=== PATIENT | female | born 1940 ===

== ENCOUNTER 2017-06-23 09:04 | Observation (INO) | payer MEDICARE, MEDICAID ==
[2017-06-23 10:01] LABS: Hematocrit 20 % (35-47); Hemoglobin 6.5 g/dl (12.0-16.0); Mean Corpuscular HGB Conc 32 g/dl (31-36); Mean Corpuscular Hemoglobin 22 pg (27-31); Mean Corpuscular Volume 68 fL (80-97); Mean Platelet Volume 9 um3 (7.4-10.4); Red Blood Count 2.99 10^6/ul (4.0-5.4); Red Cell Distribution Width 17 % (10.5-15); White Blood Count 7.4 10^3/ul (3.5-10.8)
[2017-06-23 10:06] LABS: Comments Flag Yes
[2017-06-23 10:07] LABS: Add Diff/Slide Review? Slide Review Added
[2017-06-23 10:11] LABS: BUN/Creatinine Ratio 17.2 (8-20); C Reactive Protein 3.93 mg/L (< 5.00); Calcium 8.1 mg/dL (8.6-10.3); EGFR African American 7.2 (>60); EGFR Non-African American 5.6 (>60); Globulin 3.3 g/dL (2-4); Magnesium 1.7 mg/dL (1.9-2.7); Total Bilirubin 0.3 mg/dL (0.2-1.0); Total Protein 6.3 g/dL (6.4-8.9)
[2017-06-23 10:12] LABS: Potassium 5.2 mmol/L (3.5-5.0)
[2017-06-23] MEDS ORDERED: NS 0.9% 1000 ML* 2,000 ML IV ONE (10:14)
[2017-06-23 10:38] LABS: Add Path Review? YES; Hypochromasia 2+; Microcytosis 2+; Target Cells 1+
--- NOTE | 2017-06-23 10:38 | RAD ---
INDICATION: Short of breath COMPARISON: None TECHNIQUE: An AP portable view obtained at 1005 hours is submitted. FINDINGS: Bones/Soft Tissues: There are no acute bony findings. Cardiomediastinal: The cardiomediastinal silhouette is normal. Lungs: There are no infiltrates. Pleura: There are no pleural effusions. Other: None IMPRESSION: NO ACTIVE DISEASE.
[2017-06-23 10:39] LABS: Polychromasia 1+
[2017-06-23] MEDS ORDERED: Magnesium Sulfate 1 GM IV* 1 GM/100 ML BAG IV ONE (11:54)
[2017-06-23] MEDS ORDERED: Ondansetron INJ* 2 MG/ML VIAL IV PRN (12:15)
[2017-06-23] MEDS ORDERED: Acetaminophen TAB* 325 MG PO PRN (12:15)
[2017-06-23] MEDS ORDERED: LORazepam INJ* 2 MG/ML 1 ML VIAL IV PUSH PRN (12:49)
[2017-06-23] MEDS ORDERED: Morphine INJ* 2 MG/ML 1 ML SYRINGE (TWO MG - NEW SYRINGE VERSION) IV PRN (12:49)
--- NOTE | 2017-06-23 14:14 | CONSULT ---
Palliative / Hospice Consult Ordering Provider: Steph Jacome - Subjective Code Status: Full Code Advance Directives Location: No Advance Directives MOLST Part A Completed: Yes - DNR MOLST Part E Completed:: Yes - DNI, DNH, no feeding tube HCP Completed: Yes - Daughter Jaxon Macias - History or Present Illness History or Present Illness: The patient is a 77 year old [place] immigrant who came to this country in 1984, and has had her 6 children join her at various times since then. SHe was in 2007 when her of liver failure. The patient has had renal failure for many years, but has refused dialysis. She has been under the care of Dr. Leong. In March she was seen by her PCP and was anemic, and was transfused 2 u PRBCs at that time. Her daughters report that since then, she has had worsening edema in her feet, and now has developed generalized nonpitting edema in her UEs and face. She presented to her PCP yesterday for worsening edema and fatigue and was found to have severe anemia, with H/H of 6.5 /20, and Dr. Leong referred her to the ER here. Her wbc is 7.4. She has had no evidence of any bleeding, GI or otherwise. Her BNP is 2171, albumin is 3.0, lipase 87 and her creatinine is 7.04 with BUN 121. Her family reports that her appetite has been flagging but she still drinks a lot of fluid. She lives in the home of her daughter Jaxon, whom she names today as her HCP, and also Jaxon's and 2 grandchildren. Lab Values: Laboratory Last Values WBC 7.4 10^3/ul (3.5-10.8) 06/23/17 09:25 RBC 2.99 10^6/ul (4.0-5.4) L 06/23/17 09:25 Hgb 6.5 g/dl (12.0-16.0) L 06/23/17 09:25 Hct 20 % (35-47) L 06/23/17 09:25 MCV 68 fL (80-97) L 06/23/17 09:25 MCH 22 pg (27-31) L 06/23/17 09:25 MCHC 32 g/dl (31-36) 06/23/17 09:25 RDW 17 % (10.5-15) H 06/23/17 09:25 Plt Count 226 10^3/ul (150-450) 06/23/17 09:25 MPV 9 um3 (7.4-10.4) 06/23/17 09:25 Neut % (Auto) 76.2 % (38-83) 06/23/17 09:25 Lymph % (Auto) 11.6 % (25-47) L 06/23/17 09:25 [place] % (Auto) 7.4 % (1-9) 06/23/17 09:25 Eos % (Auto) 3.6 % (0-6) 06/23/17 09:25 Baso % (Auto) 1.2 % (0-2) 06/23/17 09:25 Absolute Neuts (auto) 5.7 10^3/ul (1.5-7.7) 06/23/17 09:25 Absolute Lymphs (auto) 0.9 10^3/ul (1.0-4.8) L 06/23/17 09:25 Absolute Monos (auto) 0.6 10^3/ul (0-0.8) 06/23/17 09:25 Absolute Eos (auto) 0.3 10^3/ul (0-0.6) 06/23/17 09:25 Absolute Basos (auto) 0.1 10^3/ul (0-0.2) 06/23/17 09:25 Absolute Nucleated RBC 0.02 10^3/ul 06/23/17 09:25 Nucleated RBC % 0.2 06/23/17 09:25 Normal RBC Morphology Not Reportable 06/23/17 09:25 Polychromasia 1+ 06/23/17 09:25 Hypochromasia 2+ 06/23/17 09:25 Microcytosis 2+ 06/23/17 09:25 Target Cells 1+ 06/23/17 09:25 Sodium 136 mmol/L (133-145) 06/23/17 09:25 Potassium 5.2 mmol/L (3.5-5.0) H 06/23/17 09:25 Chloride 107 mmol/L (101-111) 06/23/17 09:25 Carbon Dioxide 17 mmol/L (22-32) L 06/23/17 09:25 Anion Gap 12 mmol/L (2-11) H 06/23/17 09:25 BUN 121 mg/dL (6-24) H 06/23/17 09:25 Creatinine 7.04 mg/dL (0.51-0.95) H 06/23/17 09:25 Est GFR ( Amer) 7.2 (>60) 06/23/17 09:25 Est GFR (Non-Af Amer) 5.6 (>60) 06/23/17 09:25 BUN/Creatinine Ratio 17.2 (8-20) 06/23/17 09:25 Glucose 96 mg/dL (70-100) 06/23/17 09:25 Calcium 8.1 mg/dL (8.6-10.3) L 06/23/17 09:25 Magnesium 1.7 mg/dL (1.9-2.7) L 06/23/17 09:25 Total Bilirubin 0.30 mg/dL (0.2-1.0) 06/23/17 09:25 AST 12 U/L (13-39) L 06/23/17 09:25 ALT 8 U/L (7-52) 06/23/17 09:25 Alkaline Phosphatase 93 U/L (34-104) 06/23/17 09:25 C-Reactive Protein 3.93 mg/L (< 5.00) 06/23/17 09:25 B-Natriuretic Peptide 2171 pg/mL (-100) H 06/23/17 09:25 Total Protein 6.3 g/dL (6.4-8.9) L 06/23/17 09:25 Albumin 3.0 g/dL (3.2-5.2) L 06/23/17 09:25 Globulin 3.3 g/dL (2-4) 06/23/17 09:25 Albumin/Globulin Ratio 0.9 (1-3) L 06/23/17 09:25 Lipase 87 U/L (11.0-82.0) H 06/23/17 09:25 Blood Type A Positive 06/23/17 09:25 Antibody Screen Negative 06/23/17 09:25 Crossmatch See Detail 06/23/17:25 - Objective Active Medications: Acetaminophen (Tylenol Tab*) 650 mg PO Q4H PRN PRN Reason: FEVER/PAIN Amlodipine Besylate (Norvasc Tab*) 5 mg PO QAM VIVEK Atenolol (Tenormin Tab*) 25 mg PO DAILY VIVEK Atorvastatin Calcium (Lipitor*) 20 mg PO DAILY VIVEK Citric Acid/Sodium Citrate (Bicitra*) 15 ml PO TID VIVEK Lorazepam (Ativan Inj*) 0.5 mg IV PUSH Q4H PRN PRN Reason: ANXIETY Morphine Sulfate (Morphine Inj (Syringe)*) 2 mg IV Q4H PRN PRN Reason: PAIN Multivitamins/Minerals (Preservision Areds(Multivitamins/Mineral)(Nf)) 1 cap PO QAM VIVEK Omeprazole (Prilosec Cap*) 20 mg PO QAM@0730 VIVEK Ondansetron HCl (Zofran Inj*) 4 mg IV Q6H PRN PRN Reason: NAUSEA Vital Signs: Vital Signs: Temp Pulse Resp BP Pulse Ox 98 F 52 16 165/44 100 06/23/17 11:47 06/23/17 11:47 06/23/17 11:47 06/23/17 11:47 06/23/17 11:47 Intake and Output: Intake & Output 06/21/17 06/22/17 06/23/17 06/24/17 06:59 06:59 06:59 06:59 Intake Total 232 Balance 232 Intake: IV Fluids 232 NS (0.9%) 232 ADLs: Meal Record Start: 06/23/17 11: 47 Freq: DAILY@0900,1400,1800 Status: Active Created 06/23/17 11:47 System (Rec: 06/23/17 11:47 System [id number]) Intake and Output Start: 06/23/17 09: 09 Freq: Status: Active Created 06/23/17 09:09 System (Rec: 06/23/17 09:09 System [id number]) Intake and Output Start: 06/23/17 11: 47 Freq: DAILY@0600,1400,2200 Status: Active Created 06/23/17 11:47 System (Rec: 06/23/17 11:47 System [id number]) Head: Symmetrical - periorbital edema Eyes: No Scleral Icterus Ears/Nose/Mouth/Throat: Clear Oropharnyx Neck: Trachea Midline Cardiovascular: RRR Respiratory: Symmetrical Chest Expansion and Respiratory Effort Abdominal: NL Sounds; No Tenderness; No Distention - Anasarca Extremities: - - Diffuse nonpitting edema Neurological: Alert and Oriented x 3, - - Speaks [place] only and interacts with family alertly - Assessment Assessment: This 77 year old woman has end-stage renal failure and severe anemia, probably on the basis of her renal failure. She is here about to obtain transfusion of 2 u PRBCs which should be done slowly because of her fluid overload and her very elevated BNP. I spoke with her family at length about this patient's end-stage disease. They understand there is no recourse, and we discussed options for care. They all agreed on naming Ath, the daughter her mother lives with, as the HCP, and also opted to be able to keep the patient comfortable at home with comfort measures only. I would suggest getting a hospital bed in the home prior to her discharge there, and the family is eager to have the patient sign on to hospice services [facility]. She certainly meets criteria for hospice services with a primary diagnosis of end-stage renal disease and a secondary diagnosis of anemia of chronic disease. Although we will not cover further blood tranfusions , we have in the past covered erythropoietin for such patients, if it might be helpful and relieve her symptoms of fluid overload. I spoke with her attending Dr. Leong, and he agrees to refer the patient to hospice services. I expect she will not survive more than a month. Thanks for asking me to consult. - Plan Consult Plan (MU): Hospice - Time On Unit Date of Evaluation: 06/23/17 Hospice Consult Time in: 13:15 Hospice Consult Time Out: 14:30 Hospice Consult Time Total: 75 > 50% of Time Spend In Counseling or Coordinating Care: Yes
--- NOTE | 2017-06-23 14:46 | HP ---
HISTORY AND PHYSICAL: ADDENDUM: Ms. Macias is a 77-year-old female with history of chronic kidney disease stage 4 and micro cytic anemia with hemoglobin reported by Dr. Ramon in February/March 2017 of just a little bit above 6. Patient presented to the hospital with complaints of anemia and hypertension. She was noted to have a hemoglobin of 6.5 and creatinine of 7.04. She is going to be admitted with a diagnosis of acute renal failure and microcytic anemia. Dr. Ureña will see the patient in consultation. Up to that p oint, it appears that the patient was notified about her renal failure and the possibility of hemodi alysis was discussed and until today patient had been refusing. Today, she is unsure. Once again, Dr. Ureña will see the patient in consultation to discuss possibility of hemodialysis with the kathryn ent soon. For further details of patient's admission plan, please see history and physical dictated by Steph Jacome, on 06/23/17, with which I agree. [id number]/[facility] #: [id number]
--- NOTE | 2017-06-23 14:46 | HP ---
CC: Dr. Leong; Dr. Valentino Hidalgo; Dr. Ureña* HISTORY AND PHYSICAL: DATE OF ADMISSION: 06/23/17 PROVIDER: Leslye Jc NP ATTENDING PHYSICIAN: Dr. Ximena Canseco* (as dictated by Leslye Jc NP) CONSULTING PHYSICIAN: Dr. Martin Ureña. PRIMARY CARE PROVIDER: Dr. Valentino Hidalgo. CHIEF COMPLAINT: Sent by PCP for anemia. HISTORY OF PRESENT ILLNESS: This is a 77-year-old female, who presents today for evaluation of anemia and acute on chronic renal disease. The patient speaks Greek and her daughter was translating per the patient and family wishes. Per the daughter, the patient was coming in for routine checkup and routine labs a few days ago. She was called today and was referred to the ER for further evaluation after it was reported that the patient's hemoglobin and hematocrit were low. At home, the patient reportedly was roughly within her baseline though she has been more dyspneic with exertion recently. The patient does live with her daughter, but per the daughter, is independent with her ADLs except for when she is extremely fatigued or ill. Her daughter does state that she does get dyspneic with exertion. She has noted that recently she has been more somnolent. However, she has not noticed any signs of bleeding. She has not noticed any blood in the toilet. The patient has also denied having any blood in urine or stool and denies tarry black stools. In regards to her weight and oral intake, daughter notes that the patient has had generalized edema that has worsened over the past few days. She states her mother drinks lot of water, her appetite has not changed, and she still is eating and drinking within her baseline. The patient also reports of generalized pain that appears to be secondary to the swelling. Of note, the patient in March [address] Ramon for diarrhea and dyspnea with exertion. At that time, it was noted that her hemoglobin was 6.2, hematocrit 20 at that time. It appears she was referred for transfusion which the patient refused admission to the hospital for it. She did have it done as an outpatient. Her daughter states that she had no further evaluation following that transfusion other than some iron studies done through [facility]. The patient declined any further workup. In regards to her renal function, the patient's creatinine at that time was noted to be 5.6. It appears that the patient had been seen by Dr. Ureña previously, but had declined dialysis. Again, the HPI and the rest of the examination were assisted by the patient's daughter, Ms. Jaxon Macias. PAST MEDICAL HISTORY: 1. Chronic kidney disease. 2. Hypertension. 3. Hyperlipidemia. 4. Osteoporosis. 5. Anemia. 6. GERD. 7. Osteoarthritis of the knee. 8. Positional vertigo. HOME MEDICATIONS: 1. Amlodipine 5 mg q.a.m. 2. Omeprazole 20 mg q.a.m. 3. Multivitamin 1 capsule daily. 4. Furosemide 40 mg b.i.d. 5. Atorvastatin 20 mg daily. 6. Atenolol 25 mg daily. 7. Aspirin 325 mg q.a.m. ALLERGIES: No known drug or food allergies. FAMILY HISTORY: Reviewed. Daughter denies any known history of heart rate, diabetes, or cancer, although she reports hepatitis B in her father who is now . SOCIAL HISTORY: The patient has never smoked, but does chew tobacco. She denies alcohol or drug use. She lives with her daughter. She is . She has 6 children, 3 daughters and 3 sons. REVIEW OF SYSTEMS: As per HPI. PHYSICAL EXAMINATION GENERAL: This is an elderly female who was lying in the ED stretcher. She does not appear to be in any acute distress. She does defer to her daughter, history was primarily provided by daughter. VITAL SIGNS: Temperature 97.3, heart rate 52, respiratory rate 14, blood pressure 141/53, and O2 saturation 98% on room air. HEENT: Head is atraumatic and normocephalic. Face is symmetrical. Pupils are equal, round, and reactive to light and accommodation. Extraocular movements are intact. Oral mucosa appears moist, there is no oropharyngeal erythema or exudate. NECK: Supple. No lymphadenopathy noted. No JVD noted. RESPIRATORY: Lungs are clear to auscultation bilaterally. There is no accessory muscle use. CARDIAC: S1 and S2 heart sounds. Regular rate and rhythm. No murmurs, rubs, or gallops. The patient has anasarca. Distal pulses are symmetric and present times all extremities. ABDOMEN: Soft, nontender, and nondistended. There was no rebound, tenderness, or guarding. Bowel sounds are normoactive. No hepatosplenomegaly. MUSCULOSKELETAL: The patient has full range of motion. There is no clubbing or cyanosis. EXTREMITIES: Again, there is generalized edema, but pitting edema in the upper and lower extremities. NEURO: The patient responds appropriately and is cooperative with exam. She moves all extremities. No acute neurological deficits. Sensation is intact to light touch. RECTAL: Deferred, the patient has declined. SKIN: Limited assessment, but is dry and warm and appears well perfused. No rashes or wounds noted. DIAGNOSTIC STUDIES/LAB DATA: CBC: WBC 7.4, hemoglobin 6.5, hematocrit 20, platelet count 226. CMP: Sodium 136, potassium 5.2, chloride 107, carbon dioxide 17, anion gap 12, BUN 121, creatinine 7.04, glucose 96, calcium 8.1, magnesium 1.7. Total bilirubin 0.3, AST 12, ALT 8, alk phos 73. CRP 3.93. BNP 2171. Albumin 3.0, lipase 87. EKG shows sinus bradycardia at a rate of 53. No significant ST elevations noted. Chest x-ray, impression: No active disease. Medical records were requested from the patient's primary care provider, no old medical records available or reviewed. ASSESSMENT AND PLAN: This is a 77-year-old, who presents today with anemia, acute on chronic renal failure. She will be admitted to the telemetry floor. Plans are as follows: 1. Anemia. The patient has microcytic anemia, likely iron deficient, and a combination of renal disease in addition to the iron deficiency. Iron studies have been requested. The patient has been ordered 2 units of blood here in the ER. She may benefit from erythropoietin injection, but the patient refuses dialysis. Otherwise, most of these treatments will be only palliative and temporary in their effect. For the anemia, we will obtain the iron studies as well as a stool occult. The patient again has refused at this time a rectal exam. I have requested the patient provide a stool sample as soon as possible and we will re-discuss apparently later the possibility of a rectal exam if she is willing. 2. Acute on chronic renal disease. This is the patient who has been seen by Dr. Ureña in the past and apparently has declined dialysis. I have discussed her case with Dr. Ureña, he has agreed to consult the patient here in the hospital. Again, we may need to consider a palliative approach as the patient continues to decline dialysis, as it appears her renal function and creatinine clearance have greatly declined since March. We will start her on Bicitra and obtain a VBG, the prognosis is guarded at this time. 3. Electrolyte abnormalities. I have ordered 1 g of magnesium to replete her mag. 4. History of hypertension. Continue amlodipine and atenolol with hold parameters. With the patient's generalized edema, she would benefit from diuresis, but given her renal function, I will defer to Dr. Ureña once he sees her to determine if we need to continue her furosemide. At this point in time, we will hold the furosemide. 5. Hyperlipidemia. Continue atorvastatin. 6. Osteoarthritis. Continue p.r.n. acetaminophen. 7. FEN. The patient will be on a renal diet. 8. Code status. She is temporarily at this time a full code per her family's wishes. 9. DVT prophylaxis. SCDS, given anemia and likelihood of acute bleed. 10. Disposition will be determined once the patient meets with Dr. Ureña and agrees upon dialysis. If the patient continues to decline dialysis, I have already asked for Palliative Care consult, but the patient can consider both options at this point in time. TIME SPENT: Greater than 60 minutes was spent on this history and physical which includes [id number] time, review of plan of care with family, and chart review. I have also reviewed this case with my attending, Dr. Canseco, who is in agreement. LESLYE JC NP ADDENDUM TO HISTORY AND PHYSICAL: Ms. Macias is a 77-year-old female with history of chronic kidney disease stage 4 and microcytic anemia with hemoglobin reported by Dr. Ramon in February/March 2017 of just a little bit above 6. Patient presented to the hospital with complaints of anemia and hypertension. She was noted to have a hemoglobin of 6.5 and creatinine of 7.04. She is going to be admitted with a diagnosis of acute renal failure and microcytic anemia. Dr. Ureña will see the patient in consultation. Up to that point, it appears that the patient was notified about her renal failure and the possibility of hemodialysis was discussed and until today patient had been refusing. Today, she is unsure. Once again, Dr. Ureña will see the patient in consultation to discuss possibility of hemodialysis with the patient soon. For further details of patient's admission plan, please see history and physical dictated by Leslye Jc, on 06/23/17, with which I agree. Ximena Canseco MD [id number]/[facility] #: [id number]/[facility] #: [id number] JU
[2017-06-23 15:44] LABS: Urine Bacteria Absent (Absent); Urine Bilirubin Negative (Negative); Urine Glucose Negative (Negative); Urine Nitrite Negative (Negative)
[2017-06-23] MEDS: Sodium Citrate/Citric Acid* 15 ML UDC PO SCH ×2 (15:58→20:24)
--- NOTE | 2017-06-23 17:26 | ED ---
Júnior Herbert Angela scribed for Lars Koch MD on 06/23/17 at 0933 . Complex/Multi-Sys Presentation - HPI Summary HPI Summary: This pt is a 77 y/o female accompanied by daughter [facility] after being referred by her PCP for anemia. Pt's PCP is Dr. Leong. Daughter reports that she was told her RBC was low by 6. Per daughter, pt is SOB and has swollen legs, arms and face. Daughter notes that the pt denies rectal bleeding or bloody stools. Pt is currently refusing a rectal exam. - History Of Current Complaint Chief Complaint: EDGeneral Time Seen by Provider: 06/23/17 09:20 Hx Obtained From: Family/Head Tennis Coach - daughter Onset/Duration: Lasting Hours Timing: Hours Location: Negative Associated Signs And Symptoms: Positive: SOB, Other - low RBC - Allergies/Home Medications Allergies/Adverse Reactions: Allergies Allergy/AdvReac Type Severity Reaction Status Date / Time No Known Allergies Allergy Verified 03/10/17 08:52 Home Medications: Home Medications Atenolol TAB* [Tenormin TAB* 50 MG] 25 mg PO DAILY 06/23/17 [History Confirmed 06/23/17] Atorvastatin* [Lipitor*] 20 mg PO DAILY 06/23/17 [History Confirmed 06/23/17] Furosemide TAB* [Lasix TAB*] 40 mg PO BID 06/23/17 [History Confirmed 06/23/17] PMH/Surg Hx/FS Hx/Imm Hx Endocrine/Hematology History: Denies: Hx Diabetes Cardiovascular History: Reports: Hx Hypertension GI History: Reports: Hx Gastroesophageal Reflux Disease History: Reports: Other Problems/Disorders Musculoskeletal History: Reports: Hx Arthritis - KNEES Sensory History: Reports: Hx Cataracts Denies: Hx Contacts or Glasses, Hx Hearing Aid Opthamlomology History: Reports: Hx Cataracts Denies: Hx Contacts or Glasses Infectious Disease History: No Infectious Disease History: Denies: Traveled Outside the [place] in Last 30 Days - Family History Known Family History: Negative: Other - malignant hyperthermia - Social History Alcohol Use: None Substance Use Type: Reports: None Smoking Status (MU): Never Smoked Tobacco Have You Smoked in the Last Year: - PT EATS TOBACCO Review of Systems Positive: Other - low RBC, anemia. Negative: Fever, Chills Eyes: Negative ENT: Negative Positive: Shortness Of Breath Negative: other - rectal bleeding or bloody stools Positive: Edema - in LE, UE, and face All Other Systems Reviewed And Are Negative: No - Comments Additional Review of Systems Comments: HPI is limited as the hx is obtained from the daughter. Physical Exam - Summary Physical Exam Summary: VITAL SIGNS: Reviewed. GENERAL: Patient is an elderly fragile female who is lying comfortable in the stretcher. Patient is not in any acute respiratory distress. History obtained from the daughter. HEAD AND FACE: No signs of trauma. No ecchymosis, hematomas or skull depressions. No sinus tenderness. EYES: PERRLA, EOMI x 2, No injected conjunctiva, no nystagmus. EARS: Hearing grossly intact. Ear canals and tympanic membranes are within normal limits. MOUTH: Oropharynx within normal limits. NECK: Supple, trachea is midline, no adenopathy, no JVD, no carotid bruit, no c- spine tenderness, neck with full ROM. CHEST: Symmetric, no tenderness at palpation LUNGS: Clear to auscultation bilaterally. No wheezing or crackles. CVS: Regular rate and rhythm, S1 and S2 present, no murmurs or gallops appreciated. ABDOMEN: Soft, non-tender. No signs of distention. No rebound no guarding, and no masses palpated. Bowel sounds are normal. : Pt refuses rectal exam. Pt denies any melena or red blood from the rectum. EXTREMITIES: FROM in all major joints, no cyanosis or clubbing. There is bilateral LE edema. NEURO: Alert and oriented x 3. No acute neurological deficits. Speech is normal and follows commands. SKIN: Dry and warm Triage Information Reviewed: Yes Vital Signs On Initial Exam: Initial Vitals Temp Pulse Resp BP Pulse Ox 97.3 F 56 19 174/55 99 06/23/17 09:05 06/23/17 09:05 06/23/17 09:05 06/23/17 09:05 06/23/17 09:05 Vital Signs Reviewed: Yes Diagnostics - Vital Signs Vital Signs Temp Pulse Resp BP Pulse Ox 06/23/17 09:05 97.3 F 56 19 174/55 99 - Laboratory Lab Results: Lab Results 06/23/17 06/23/17 06/23/17 Range/Units 09:25 09:25 09:25 WBC 7.4 (3.5-10.8) 10^3/ul RBC 2.99 L (4.0-5.4) 10^6/ul Hgb 6.5 L (12.0-16.0) g/dl Hct 20 L (35-47) % MCV 68 L (80-97) fL MCH 22 L (27-31) pg MCHC 32 (31-36) g/dl RDW 17 H (10.5-15) % Plt Count 226 (150-450) 10^3/ul MPV 9 (7.4-10.4) um3 Neut % (Auto) 76.2 (38-83) % Lymph % (Auto) 11.6 L (25-47) % [facility] % (Auto) 7.4 (1-9) % Eos % (Auto) 3.6 (0-6) % Baso % (Auto) 1.2 (0-2) % Absolute Neuts (auto) 5.7 (1.5-7.7) 10^3/ul Absolute Lymphs (auto) 0.9 L (1.0-4.8) 10^3/ul Absolute Monos (auto) 0.6 (0-0.8) 10^3/ul Absolute Eos (auto) 0.3 (0-0.6) 10^3/ul Absolute Basos (auto) 0.1 (0-0.2) 10^3/ul Absolute Nucleated RBC 0.02 10^3/ul Nucleated RBC % 0.2 Normal RBC Morphology Not Reportable Polychromasia 1+ Hypochromasia 2+ Microcytosis 2+ Target Cells 1+ Hem Pathologist Commnt Pending Sodium 136 (133-145) mmol/L Potassium 5.2 H (3.5-5.0) mmol/L Chloride 107 (101-111) mmol/L Carbon Dioxide 17 L (22-32) mmol/L Anion Gap 12 H (2-11) mmol/L BUN 121 H (6-24) mg/dL Creatinine 7.04 H (0.51-0.95) mg/dL Est GFR ( Amer) 7.2 (>60) Est GFR (Non-Af Amer) 5.6 (>60) BUN/Creatinine Ratio 17.2 (8-20) Glucose 96 (70-100) mg/dL Calcium 8.1 L (8.6-10.3) mg/dL Magnesium 1.7 L (1.9-2.7) mg/dL Total Bilirubin 0.30 (0.2-1.0) mg/dL AST 12 L (13-39) U/L ALT 8 (7-52) U/L Alkaline Phosphatase 93 (34-104) U/L C-Reactive Protein 3.93 (< 5.00) mg/L B-Natriuretic Peptide 2171 H ( - 100) pg/mL Total Protein 6.3 L (6.4-8.9) g/dL Albumin 3.0 L (3.2-5.2) g/dL Globulin 3.3 (2-4) g/dL Albumin/Globulin Ratio 0.9 L (1-3) Lipase 87 H (11.0-82.0) U/L Blood Type Antibody Screen Crossmatch 06/23/17 Range/Units 09:25 WBC (3.5-10.8) 10^3/ul RBC (4.0-5.4) 10^6/ul Hgb (12.0-16.0) g/dl Hct (35-47) % MCV (80-97) fL MCH (27-31) pg MCHC (31-36) g/dl RDW (10.5-15) % Plt Count (150-450) 10^3/ul MPV (7.4-10.4) um3 Neut % (Auto) (38-83) % Lymph % (Auto) (25-47) % [facility] % (Auto) (1-9) % Eos % (Auto) (0-6) % Baso % (Auto) (0-2) % Absolute Neuts (auto) (1.5-7.7) 10^3/ul Absolute Lymphs (auto) (1.0-4.8) 10^3/ul Absolute Monos (auto) (0-0.8) 10^3/ul Absolute Eos (auto) (0-0.6) 10^3/ul Absolute Basos (auto) (0-0.2) 10^3/ul Absolute Nucleated RBC 10^3/ul Nucleated RBC % Normal RBC Morphology Polychromasia Hypochromasia Microcytosis Target Cells Hem Pathologist Commnt Sodium (133-145) mmol/L Potassium (3.5-5.0) mmol/L Chloride (101-111) mmol/L Carbon Dioxide (22-32) mmol/L Anion Gap (2-11) mmol/L BUN (6-24) mg/dL Creatinine (0.51-0.95) mg/dL Est GFR ( Amer) (>60) Est GFR (Non-Af Amer) (>60) BUN/Creatinine Ratio (8-20) Glucose (70-100) mg/dL Calcium (8.6-10.3) mg/dL Magnesium (1.9-2.7) mg/dL Total Bilirubin (0.2-1.0) mg/dL AST (13-39) U/L ALT (7-52) U/L Alkaline Phosphatase (34-104) U/L C-Reactive Protein (< 5.00) mg/L B-Natriuretic Peptide ( - 100) pg/mL Total Protein (6.4-8.9) g/dL Albumin (3.2-5.2) g/dL Globulin (2-4) g/dL Albumin/Globulin Ratio (1-3) Lipase (11.0-82.0) U/L Blood Type A Positive Antibody Screen Negative Crossmatch See Detail Result Diagrams: 06/23/17 09:25 06/23/17 09:25 Lab Statement: Any lab studies that have been ordered have been reviewed, and results considered in the medical decision making process. - Radiology Chest XR Xray Interpretation: No Acute Changes - IMPRESSION: No active disease. ED physician has reviewed this radiology report and agrees. Radiology Interpretation Completed By: Radiologist - EKG 1010 Cardiac Rate: Bradycardia - 54 bpm EKG Rhythm: Sinus Rhythm EKG Interpretation: No ST elevation 1120 Cardiac Rate: Bradycardia - 53 bpm EKG Rhythm: Sinus Rhythm EKG Interpretation: No ST elevation Complex Multi-Symp Course/Dx Assessment/Plan: This pt is a 77 y/o female accompanied by daughter [facility] after being referred by her PCP for low RBC. Pt's PCP is Dr. Leong. Daughter reports that she was told her RBC was low by 6. Per daughter, pt is SOB and has swollen legs. Daughter notes that the pt denies rectal bleeding or bloody stools. Pt is currently refusing a rectal exam. Test results show H&H of 6.5/20, platelet count of 226, potassium of 5.2, BUN of 121, creatinine is 7.04, BNP is 2171. Chest XR shows no active disease. In the ED course, I ordered 2 units of blood transfusion. I discussed the case with Dr. Ureña, he will consult with the pt. I also discussed the case with Dr. Canseco, who accepted the pt for admission. Pt is hemodynamically stable, alert and oriented x3. Pt adamantly refuses rectal exam, she denies she has melena or rectal bleeding. We will obtain guaiac if pt has a bowel movement. I also ordered a zacarias catheter, however the pt is thinking. At this point she refuses. I discussed the pt's case with Dr. Canseco. She has accepted the pt for admission. [10:21] I spoke with Dr. Ureña, chief load dispatcher. He will consult with the pt. - Diagnoses Provider Diagnoses: Symptomatic anemia, Acute renal failure, CHF exacerbation - Physician Notifications Discussed Care Of Patient With: Ximena Canseco Time Discussed With Above Provider: 10:39 Instructed by Provider To: Other - I discussed the pt's case with Dr. Canseco. She has accepted the pt for admission. [10:21] I spoke with Dr. Ureña, chief load dispatcher. He will consult with the pt. Discharge - Discharge Plan Condition: Stable Disposition: ADMITTED TO [facility] The documentation as recorded by the Júnior fernandez Angela accurately reflects the service I personally performed and the decisions made by me, Lars Koch MD.
[2017-06-24 01:32] VITALS: BP 164/43
[2017-06-24 05:21] LABS: Hematocrit 25 % (35-47); Hemoglobin 8.2 g/dl (12.0-16.0); Mean Corpuscular HGB Conc 33 g/dl (31-36); Mean Corpuscular Hemoglobin 24 pg (27-31); Mean Platelet Volume 8 um3 (7.4-10.4); Red Blood Count 3.41 10^6/ul (4.0-5.4); Red Cell Distribution Width 21 % (10.5-15); White Blood Count 7.9 10^3/ul (3.5-10.8)
[2017-06-24 05:24] LABS: Comments Flag Yes
[2017-06-24 05:25] LABS: Mean Corpuscular Volume 72 fL (80-97)
[2017-06-24 05:33] LABS: BUN/Creatinine Ratio 17.1 (8-20); Calcium 8.1 mg/dL (8.6-10.3); EGFR African American 7.2 (>60); EGFR Non-African American 5.6 (>60)
[2017-06-24 05:36] LABS: Potassium 5.5 mmol/L (3.5-5.0)
[2017-06-24] MEDS ORDERED: Omeprazole CAP* 20 MG PO SCH (07:30)
[2017-06-24] MEDS ORDERED: Atenolol TAB* 25 MG PO SCH (09:00)
[2017-06-24] MEDS ORDERED: Multivitamins/Minera Areds(NF) 1 CAP CAP PO SCH (09:00)
[2017-06-24] MEDS ORDERED: Atorvastatin* 20 MG TAB PO SCH (09:00)
[2017-06-24] MEDS ORDERED: amLODIPine TAB* 5 MG PO SCH (09:00)
[2017-06-24] MEDS: Sodium Citrate/Citric Acid* 15 ML UDC PO SCH (09:34)
--- NOTE | 2017-06-25 03:16 | DS ---
CC: Dr. Leong; Dr. Ureña; Dr. Gayatri Biswas* DISCHARGE SUMMARY: DATE OF ADMISSION: 06/23/17 DATE OF DISCHARGE: 06/24/17 PRIMARY CARE PROVIDER: Dr. Leong. DISCHARGE DIAGNOSES: 1. Anemia in a patient with a history of chronic anemia, most likely due to end - stage renal disease. 2. End-stage renal disease in a patient with a history of chronic kidney disease, stage 4. SECONDARY DIAGNOSES: 1. Hypertension 2. Hyperlipidemia. 3. Osteoporosis. 4. Anemia. 5. Gastroesophageal reflux disease. 6. History of osteoarthritis. 7. Positional vertigo. MEDICATIONS AT DISCHARGE: Unchanged from admission and include: 1. Amlodipine 5 mg daily. 2. Omeprazole 20 mg daily. 3. Multivitamin 1 tablet daily. 4. Furosemide 40 mg b.i.d. 5. Atorvastatin 20 mg daily. 6. Atenolol 25 mg daily. 7. Aspirin 325 mg daily. 8. Morphine concentrate 5 mg every 2 hours for dyspnea or pain. The patient was dispensed prescription for 1 bottle for 10-day supply. CONSULTATIONS DURING THE HOSPITAL STAY: Included Dr. Gayatri Biswas and Dr. Ureña. During the patient hospital stay, the patient was transfused 2 units of packed red blood cells on 06/23/17. LABORATORY DATA: Obtained include: On 06/24/17, white blood cell count of 7.9, hemoglobin 8.2, hematocrit 25, MCV of 72, and platelets of 172. Sodium was 137, potassium 5.5, chloride 109, carbon dioxide 16, anion gap of 12 , BUN 121, creatinine 1.09. HOSPITALIZATION COURSE: Ms. Macias is a 77-year-old female, originally from [facility], who is using her daughter present in the room as a high risk case manager. She came in, sent by her primary care provider for anemia. She had been noted to be anemic in February and March 2017. She was directed for admission, but apparently she refused. She did have a transfusion as an outpatient at that point. She also had chronic kidney disease stage 4 and she had been seen by Dr. Ureña previously, but declined dialysis. When she presented to [facility] on 06/23/17, her hemoglobin was 6 and she was noted to have metabolic acidosis with creatinine of 7. She was offered hemodialysis, but she refused. Subsequently, Dr. Gayatri Biswas saw the patient in consultation, deemed the patient a good candidate for outpatient hospice services. The patient's family did not want any more aggressive measures done and wanted for the patient to be kept comfortable. The patient was prescribed morphine on a p.r.n. basis for comfort care. Hospice is planning to come in within the next several days and sign in the patient on outpatient hospice. We also arranged for the patient to have a hospital bed and wheelchair at home after discharge. PHYSICAL EXAMINATION: At the time of discharge, blood pressure of 164/43, heart rate of 53 and regular, respiratory rate 16, oxygen saturation 98% on room air, temperature of 98.1. General: The patient is a pleasant 77-year-old female, who is originally speaking [place]. The patient is in no acute distress. From my conversation with the patient's daughter, the patient is alert and oriented x2. HEENT: Head, atraumatic, normocephalic. Eyes: Pupils are equal, reactive to light and accommodation. Oropharynx is clear. Mucosa moist. Neck: Supple. No JVD. No bruits bilaterally. Cardiovascular: Regular rate and rhythm. No murmur. Respiratory: Crackles at bilateral bases that was clear. Abdomen: Soft, nontender. Bowel sounds are present in all 4 quadrants. Extremities: There is pitting edema, +1 in bilateral lower extremities. There was no clubbing or cyanosis. On neuro evaluation, speech is clear. Cranial nerves II through XII grossly intact. Motor strength is 5/5 bilaterally. The patient is going to be discharged for comfort care measures at home. At this point, I will continue all of her outpatient medications. The patient is going to be signing in with outpatient at home hospice services within the next few days. She is to use morphine for shortness of breath and pain as needed. Please note that this is a very short summary of the patient's hospital stay. Please refer to further medical records for details. [id number]/[facility] #: [id number] MTDD
== END 2017-06-24 14:32 | disposition home or self-care (01) ==
LOC: ED 09:04 → INTOOBSV 10:42 → MEDTELE 10:42
PROVIDERS: ADMIT Internal Medicine; ATTEND Internal Medicine
DX: I12.0 Hypertensive chronic kidney disease with stage 5 chronic kidney disease or end stage renal disease (principal); N18.6 End stage renal disease; D63.1 Anemia in chronic kidney disease; E78.5 Hyperlipidemia, unspecified; M81.0 Age-related osteoporosis without current pathological fracture; K21.9 Gastro-esophageal reflux disease without esophagitis; M19.90 Unspecified osteoarthritis, unspecified site; H81.10 Benign paroxysmal vertigo, unspecified ear; Z79.899 Other long term (current) drug therapy; E87.8 Other disorders of electrolyte and fluid balance, not elsewhere classified; R06.02 Shortness of breath; R00.1 Bradycardia, unspecified
CPT/HCPCS: 36415; 36430; 71010; 80048; 80053; 81003; 81015; 83690; 83735; 83880; 85025; 85060; 86140; 86850; 86900; 86901; 86922; 87086; 93005; 94760; 96374; 99284; A9270-GY; G0378; J3475; P9040